=== PATIENT | male | born 1960 | race Caucasian/White ===

== ENCOUNTER 2016-07-18 10:27 | Inpatient (IN) | payer OTHER, MEDICARE ==
[2016-07-18] MEDS ORDERED: GLUCOTROL5 M1 PO (10:52)
[2016-07-18] MEDS ORDERED: CETIRIZINE HCL10 M1 PO (10:52)
[2016-07-18] MEDS ORDERED: ASMANEX220 MC1 INH (10:53)
[2016-07-18] MEDS ORDERED: GLUCOPHAGE XR500 M1 PO (10:53)
[2016-07-18] MEDS ORDERED: AQUABASE TP (10:53)
[2016-07-18] MEDS ORDERED: OMEPRAZOLE20 M3 PO (10:53)
[2016-07-18] MEDS ORDERED: PRINIVIL5 M1 PO (10:53)
[2016-07-18] MEDS ORDERED: TYLENOL325 M2 PO (10:54)
[2016-07-18] MEDS ORDERED: ASPIRIN EC81 MG PO (10:54)
[2016-07-18] MEDS ORDERED: APPLE CIDER VI1 EACH PO (10:54)
[2016-07-18] MEDS ORDERED: FISH OIL 11000 MG/CA PO (10:54)
[2016-07-18 11:01] LABS: BASO % 0.7 % (0-2); BASO ABSOLUTE COUNT 0.1 tho/cmm (0.0-0.2); EOS % 1.9 % (0-7); EOSINOPHIL ABSOLUTE COUNT 0.2 tho/cmm (0.0-0.7); HGB-HEMOGLOBIN 15.7 gm/dl (13.5-17.0); IMMATURE GRANULOCYTES ABSOLUTE 0.03 tho/cmm (0-0.03); IMMATURE GRANULOCYTES PERCENT 0.3 % (0-0.3); LYMPH % 22.6 % (20-45); LYMPH ABSOLUTE COUNT 2.2 tho/cmm (0.8-4.5); MCH (MEAN CORPUSCULAR HGB) 30.2 pg (28.0-32.0); MCHC MEAN CORPUSCULAR HGB CONC 34.9 % (32.0-36.0); MCV (MEAN CELL VOLUME) 86.5 fl (82.0-96.0); MEAN PLATELET VOLUME 10.4 cmc (9.4-12.4); MONO % 7.1 % (0-12); MONOCYTE ABSOLUTE COUNT 0.7 tho/cmm (0.0-1.2); NEUTROPHIL ABSOLUTE COUNT 6.7 tho/cmm (1.6-8.0); NEUTROPHIL-AUTOMATED 6.7 tho/cmm (1.6-8.0); NEUTROPHILS % 67.4 % (40-80); PLATELET COUNT 289 tho/cmm (150-450); WHITE BLOOD COUNT 9.9 tho/cmm (4.0-10.0)
[2016-07-18 11:06] LABS: INR 0.8 INR (0.9-1.1); PROTHROMBIN TIME 9.8 SECONDS (9.0-13.6)
[2016-07-18 11:18] LABS: ALB/GLOB RATIO 1.1 (0.8-2.0); ALBUMIN 3.7 g/dl (3.5-5.0); ALKALINE PHOSPHATASE 73 U/L (33-138); ALT/SGPT 39 U/L (12-78); ANION GAP 16 mmol/L (0-20); AST/SGOT 21 U/L (10-40); BILIRUBIN,TOTAL 0.3 mg/dl (0.0-1.5); BLOOD UREA NITROGEN 12 mg/dl (6-24); CALCIUM 8.6 mg/dl (8.5-10.5); CARBON DIOXIDE-VENOUS 20 mmol/L (22-32); CHLORIDE 104 mmol/l (96-110); CREATININE 1.09 mg/dl (0.60-1.30); GLUCOSE 166 mg/dL (70-110); MAGNESIUM 1.9 mg/dl (1.8-2.6); POTASSIUM 4.1 mmol/L (3.7-5.1); SODIUM 136 mmol/L (135-145); eGFR VALUE FOR BLACK 86 mL/Min
[2016-07-18 11:51] LABS: ESR-ERYTHROCYTE SED RATE 4 mm/hr (0-20)
--- NOTE | 2016-07-18 18:13 | NUR ---
PT WAS CALM AT 1730, BEFORE NEUROLOGIST VISIT. UPON NEUROLOGIST VISIT HE BECAME VERY ANGRY AND BELLIGERANT. HE SAID HE WAS LEAVING AND GOT DRESSED. THE NEUROLOGIST CAME AND NOTIFIED ME. I ATTEMPTED TO CALM THE PATIENT DOWN AND OFFERED TO DO A NEURO ASSESSMENT WHILE DR MONTIEL WATCHED. THE PATIENT SAID NO AND THAT DR MONTIEL WAS VERY RUDE. WAS NOT ABLE TO CONVICE PT TO STAY. RAN DOWN THE JO TO DC IV AND PT LEFT. CALLED SON AND SECURITY TO NOTIFY.
[2016-07-20] MEDS ORDERED: ZETIA10 M1 PO (15:46)
[2016-07-20] MEDS ORDERED: TRICOR145 M2 PO (15:47)
[2016-07-20] MEDS ORDERED: TENORMIN25 M1 PO (15:56)
[2016-07-20] MEDS ORDERED: PLAVIX75 M1 PO (16:06)
[2016-11-27] MEDS ORDERED: PROAIR HFA8.5 GM INH (11:09)
[2016-11-27] MEDS ORDERED: GUAIFENESIN DM S5 M1 PO (11:10)
[2016-11-27] MEDS ORDERED: LEVETIRACETAM500 M2 PO (11:10)
[2016-11-27] MEDS ORDERED: TYLENOL325 M2 PO (11:10)
[2016-11-27] MEDS ORDERED: APPLE CIDER VINEGAR PO (11:10)
[2016-11-27] MEDS ORDERED: VITAMIN D31000 UNI3 PO (11:11)
[2016-11-27] MEDS ORDERED: MULTIVITAMINS1 EAC7 PO (11:12)
[2016-11-27] MEDS ORDERED: FISH OIL 11000 MG/CA PO (11:12)
[2016-11-27] MEDS ORDERED: LOPRESSOR50 M1 PO (11:30)
[2016-11-27] MEDS ORDERED: TYLENOL EXTRA500 M1 PO (11:30)
[2016-11-27] MEDS ORDERED: LASIX40 M1 PO (11:30)
[2016-11-27] MEDS ORDERED: DOCUSATE SODIU100 M2 PO (11:31)
[2016-11-27] MEDS ORDERED: MIRALAX17 G2 PO (11:31)
[2016-11-27] MEDS ORDERED: OXYCODONE HCL5 M1 PO (11:31)
== END 2016-07-20 17:02 | DRG 69 ==
LOC: EDMED 10:27 → EMR2 14:58 → 5EB 16:30
PROVIDERS: Family Medicine; ADMIT Hospitalist
DX: G45.9 Transient cerebral ischemic attack, unspecified (principal); I10 Essential (primary) hypertension; R07.9 Chest pain, unspecified; E78.5 Hyperlipidemia, unspecified; E11.9 Type 2 diabetes mellitus without complications; I25.10 Atherosclerotic heart disease of native coronary artery without angina pectoris; F43.10 Post-traumatic stress disorder, unspecified; G93.0 Cerebral cysts; R29.810 Facial weakness; K21.9 Gastro-esophageal reflux disease without esophagitis; M19.90 Unspecified osteoarthritis, unspecified site
CPT/HCPCS: A9500; A9577; C8929; G8989-GO-CH; J1650; J2785; J7030